=== PATIENT | female | born 1990 | race American Indian/Alaskan Native ===

== ENCOUNTER 2018-01-21 17:21 | Emergency (ER) | payer MEDICAID ==
[~2018-01-21] VITALS: Ht 167.6 cm; Wt 63.6 kg
[2018-01-21 19:36] LABS: CLARITY,URINE SLIGHTLY CLOUDY (Clear); COLOR,URINE STRAW (Yellow); GLUCOSE, URINE NEGATIVE (Neg); KETONES,URINE NEGATIVE (Neg); LEUKOCYTE ESTERASE ,URINE NEGATIVE (Neg); NITRITES, URINE NEGATIVE (Neg); OCCULT BLOOD,URINE NEGATIVE (Neg); PROTEIN,URINE NEGATIVE (Neg); UROBILINOGEN,URINE 0.2 E.U/dL (0.2-1.0)
[2018-01-21 19:38] LABS: UA COLLECTION TYPE CLN CATCH MIDSTREAM
[2018-01-21 19:45] LABS: BACTERIA,URINE FEW /HPF (Neg); MUCUS STRANDS NONE SEEN /LPF (Neg); RBC,URINE NONE SEEN /HPF (0-2); SQUAMOUS EPITHELIAL CELL,UR FEW /LPF (FEW); WBC,URINE 0-4 /HPF (0-4)
[2018-01-21 20:10] VITALS: BP 112/75
== END 2018-01-21 20:11 | disposition home or self-care (01) ==
LOC: ER 17:22
DX: S39.012A Strain of muscle, fascia and tendon of lower back, initial encounter (principal); K59.00 Constipation, unspecified; E05.90 Thyrotoxicosis, unspecified without thyrotoxic crisis or storm; Z88.8 Allergy status to other drugs, medicaments and biological substances; X58.XXXA Exposure to other specified factors, initial encounter; Y93.89 Activity, other specified; Y92.89 Other specified places as the place of occurrence of the external cause; Y99.8 Other external cause status
CPT/HCPCS: 72100; 81001; 99285

== ENCOUNTER 2019-01-27 10:45 | Emergency (ER) | payer MEDICAID ==
[~2019-01-27] VITALS: Ht 167.6 cm; Wt 64.0 kg
[2019-01-27 10:46] VITALS: BP 119/72
[2019-01-27] MEDS ORDERED: KETO10TA2 PO (11:00)
[2019-01-27] MEDS ORDERED: ketorolac trometh inj. 60 MG/2 ML VIAL IM ONE (11:00)
[2019-01-27] MEDS ORDERED: CYCL-1 PO (11:00)
== END 2019-01-27 11:43 | disposition home or self-care (01) ==
LOC: ER 10:46
DX: S33.5XXA Sprain of ligaments of lumbar spine, initial encounter (principal); E05.90 Thyrotoxicosis, unspecified without thyrotoxic crisis or storm; G89.29 Other chronic pain; M54.9 Dorsalgia, unspecified; Z88.8 Allergy status to other drugs, medicaments and biological substances; X58.XXXA Exposure to other specified factors, initial encounter; Y93.89 Activity, other specified; Y92.89 Other specified places as the place of occurrence of the external cause; Y99.8 Other external cause status
CPT/HCPCS: 96372; 99283; J1885